=== PATIENT | male | born 1960 | race Caucasian/White ===

== ENCOUNTER 2019-08-24 08:35 | Day surgery (SDC) | payer BC ==
[~2019-08-24] VITALS: Ht 182.9 cm; Wt 98.4 kg
[~2019-08-24 08:35] MED LIST: AMITRIPTYLINE H25 MG PO; ASPIRIN EC325 MG PO; IBUPROFEN600 MG PO; LISINOPRIL20 MG PO; METFORMIN HCL1000 MG PO; METOPROLOL SUCC50 MG PO; METOPROLOL TART50 MG PO; NEXIUM20 MG PO; OMEPRAZOLE20 MG PO; VALIUM5 MG PO; ZOFRAN4 MG PO
--- NOTE | 2019-08-24 11:20 | NUR ---
08/24/19 1120 Yola Dempsey 1112-PT ARRIVES TO PACU ON 5 L O2 WHICH IS DECREASED TO 2 L VIA NC PATIENT IS AWAKE AND TALKING. PT DENIES PAIN/NAUSEA. VSS. SATS >90%. 1119-PT ASKS QUESTIONS ABOUT PROCEDURE AND LIES IN BED WITH EYES OPEN. PT REPOSITIONED SELF ONTO BACK. VSS. SATS >90%.
--- NOTE | 2019-08-25 10:23 | OR ---
[facility] [address] [place], [place] [address] Signed DATE OF OPERATION: 08/24/2019 SURGEON: Marianela Hagan MD PREOPERATIVE DIAGNOSES: 1. Persistent right lower and right mid abdominal pain. 2. Bentonite use, self administered. POSTOPERATIVE DIAGNOSIS: Normal-appearing colon. PROCEDURE: Total colonoscopy to cecum with biopsy of rectum. ANESTHESIA: Intravenous sedation, fentanyl 100 mcg, Versed 6 mg. INDICATIONS: This 59-year-old white man is a patient Dr. Pascual Brewster and known to me from the distant past. He has had persistent right lower abdominal pain and right mid abdominal pain. The patient self treats with Bentonite in small amounts to "detoxify" his system. He has had no blood per rectum. Palpation reveals fullness in the right lower abdomen suggestive though not diagnostic of a colon mass, though this may represent stool. He is admitted at this time to undergo colonoscopy to rule out neoplasm. He understands the risks of bleeding, infection, and perforation, and wished to proceed. FINDINGS: The prep was excellent. Complete colonoscopy was undertaken to the cecum. There was no sign of abnormality, specifically certainly no mass. Biopsies of the rectum were undertaken as well. Notably, cessation of the bentonite been tonight during the course of his bowel prep, which included a low-fiber diet, did coincide with resolution of his right-sided abdominal pain. PROCEDURE NOTE: The patient was brought to the endoscopy suite and placed in lateral decubitus position, given intravenous sedation to the point of slurred speech and nystagmus with full cardiopulmonary monitoring. A full protective gear for the staff was used as we are in the midst of a COVID epidemic. Digital rectal examination was found to be normal. An Olympus video colonoscope was passed into the rectum and manipulated throughout the Electronically Signed By: MARIANELA HAGAN MD 08/25/19 1023 PATIENT NAME: ADALBERTO QUINONES OPERATIVE REPORT DATE OF : 62 REPORT #: [id number] PHYSICIAN: MARIANELA HAGAN MD PCP: BOBBI VEGA REPORT IS CONFIDENTIAL AND NOT TO BE RELEASED WITHOUT AUTHORIZATION [facility] [address], [place] [address] Signed colon, ultimately intubating the cecum itself. The ileocecal valve and appendiceal orifice were normal. The scope was withdrawn from that point and examination throughout showed no sign of polyps, diverticular formation, colitis, or cancer. Retroflex view was normal as well. Biopsies obtained of the rectum to assess for colitis. Scope was removed. The patient was taken to the recovery room in good condition. CONCLUDING DIAGNOSIS: No sign of colonic neoplasm or other abnormality to account for his current symptoms. The resolution of his symptoms with avoidance of Bentonite may be significant. We will ask him to avoid Bentonite going forward. If his symptoms should recur despite that, he will let us know and further evaluation might be considered. MD DEANA Flores/REGINA /[id number] cc: Pascual Brewster MD Copies: PASCUAL BREWSTER DMD ~ Electronically Signed By: MARIANELA HAGAN MD 08/25/19 1023 PATIENT NAME: STACIEADALBERTO DENISEDG OPERATIVE REPORT DATE OF : 62 REPORT #: [id number] PHYSICIAN: MARIANELA HAGAN MD PCP: BOBBI VEGA REPORT IS CONFIDENTIAL AND NOT TO BE RELEASED WITHOUT AUTHORIZATION
--- NOTE | 2019-08-25 11:05 | PATH ---
[facility] [address] [place], [place] [address] Signed SPECIMEN(S): A RECTUM SPECIMEN SOURCE: A. RECTUM CLINICAL HISTORY: Pre: Abdominal pain (RLQ). Post: Normal-appearing colon. MICROSCOPIC DESCRIPTION: Histologic sections of all submitted blocks are examined by light microscopy. These findings, together with the gross examination, support the pathologic diagnosis. FINAL PATHOLOGIC DIAGNOSIS: Rectum, biopsy: - Rectal mucosa with no histopathologic abnormality. - Negative for dysplasia or malignancy. NAL:cml:C2NR GROSS DESCRIPTION: The specimen, labeled "PS, 1," and designated on the requisition "rectum," is received in formalin and consists of two simons soft tissue fragments that measure 0.3 cm in greatest dimension. The specimen is entirely submitted in cassette (A1). AT (under the direct supervision of a pathologist) The Gross Description was prepared using a voice recognition system. The report was reviewed for accuracy; however, sound-alike word errors, addition and/or deletions may occur. If there is any question about this report, please contact Client Services. PERFORMING LABORATORY: The technical component was performed by [employer], [address] [place] [address] (Fundraising Director: Stefania Blanco MD; CLIA# [id number]). [facility], [address] [place] [id number] (CLIA# [id number]). Diagnostician: Mary Grace Escobedo MD Pathologist Electronically Signed 08/25/2019 PATIENT NAME: ADALBERTO QUINONES PATHOLOGY DATE OF : 62 REPORT #: [id number] PHYSICIAN: CLAUDIA PATHOLOGY PCP: BOBBI VEGA REPORT IS CONFIDENTIAL AND NOT TO BE RELEASED WITHOUT AUTHORIZATION [address] [address] Signed Copies: ~ PATIENT NAME: ADALBERTO QUINONES PATHOLOGY DATE OF : 62 REPORT #: [id number] PHYSICIAN: CLAUDIA PATHOLOGY PCP: BOBBI VEGA REPORT IS CONFIDENTIAL AND NOT TO BE RELEASED WITHOUT AUTHORIZATION
== END 2019-08-24 11:50 | disposition home or self-care (01) ==
LOC: DS 08:35 → OPS 08:35 → DS 09:30 → OPS 09:30
PROVIDERS: Surgery
PROC: 0DBP8ZZ Excision of Rectum, Via Natural or Artificial Opening Endoscopic (ICD-10-PCS; principal; 2019-08-24 09:30)
DX: R10.31 Right lower quadrant pain (principal); R19.7 Diarrhea, unspecified; K21.0 Gastro-esophageal reflux disease with esophagitis; E78.00 Pure hypercholesterolemia, unspecified; I10 Essential (primary) hypertension; K21.9 Gastro-esophageal reflux disease without esophagitis; Z79.899 Other long term (current) drug therapy
CPT/HCPCS: 99153; G0500; J2250; J3010; J7121

== ENCOUNTER 2020-06-27 10:57 | Day surgery (SDC) | payer BC ==
[~2020-06-27] VITALS: Ht 182.9 cm; Wt 96.0 kg
--- NOTE | 2020-06-27 13:12 | NUR ---
06/27/20 1312 Yordy Loera RESPONDS TO VOICE. DENIES NAUSEA OR PAIN. REORIENTED TO TIME AND SITUATION. CBG 198 PER FINGER STICK.
--- NOTE | 2020-06-28 11:43 | OR ---
[facility] [address] [place], [place] [address] Signed DATE OF OPERATION: 06/27/2020 SURGEON: Marianela Hagan MD PREOPERATIVE DIAGNOSES: 1. Gastroesophageal reflux, on PPI medication. 2. Chronic left lower abdominal pain, colonoscopy without sign of neoplasm. POSTOPERATIVE DIAGNOSIS: Hiatal hernia with mild distal esophagitis. PROCEDURE: Esophagogastroduodenoscopy with biopsy. ANESTHESIA: Intravenous sedation, fentanyl 100 mcg and Versed 4 mg. INDICATION: A 59-year-old white man, a patient of Dr. Cross, is referred for upper endoscopy on the basis of his reflux problems. He has no hematemesis or severe dysphagia, but does require PPI medication for control of epigastric pain. Notably, the patient has chronic left lower abdominal pain. He has undergone colonoscopy in the past several months, which showed no sign of neoplasm, colitis, or stricture. He is admitted at this time to undergo upper endoscopy upon recommendation of his primary provider, Dr. Cross. He understands the risks of bleeding, infection and perforation, and wished to proceed. FINDINGS: There is mild distal esophagitis and hiatal hernia noted. The stomach itself was normal as was the pylorus. The duodenum had mild inflammation, but not too much. CLOtest was negative 20 minutes post procedure. DESCRIPTION OF PROCEDURE: The patient was brought to the endoscopy suite and given topical lidocaine anesthesia and placed in lateral decubitus position, given intravenous sedation to the point of slurred speech and nystagmus. A bite block was placed. An Olympus video upper endoscope was passed in the hypopharynx. The vocal cords were normal. The scope was advanced to the esophagus throughout its length, it was normal except in the distal portion where there was mild chronic inflammation. Scope was passed into the stomach, which was insufflated with air. Rugal folds appeared normal as did the antral mucosa. The pylorus was normal. Scope was passed through into the duodenum. Duodenum was Electronically Signed By: MARIANELA HAGAN MD 06/28/20 1143 PATIENT NAME: ADALBERTO QUINONES OPERATIVE REPORT DATE OF : 62 REPORT #: [id number] PHYSICIAN: MARIANELA HAGAN MD PCP: CARMELO CROSS MD REPORT IS CONFIDENTIAL AND NOT TO BE RELEASED WITHOUT AUTHORIZATION [facility] [address] [place], [place] [address] Signed reasonably normal. There was some mild inflammatory change of the bulbar portion. Biopsies were obtained. The scope was withdrawn and biopsies then taken of the antrum for both KAREN and pathologic testing. Retroflexed view was undertaken showing somewhat laxed flap valve with further withdrawal in the J-position, complete effacement of the GE junction consistent with hiatal hernia. Scope was straightened, withdrawn and biopsies then taken of the distal esophageal mucosa. Withdrawal of scope showed no sign of Calloway's epithelium or other abnormality. The patient was taken to the recovery room in good condition at the conclusion of the procedure having suffered no complication. CONCLUDING DIAGNOSES: Hiatal hernia and chronic distal esophagitis without Calloway's epithelium or stricture. PLAN: 1. Recommend continued use of PPI medication. 2. He will return to the ongoing care of Dr. Cross. Marianela Hagan MD JM/MODL /[id number] cc: Camrelo Cross MD Copies: ~ Electronically Signed By: MARIANELA HAGAN MD 06/28/20 1143 PATIENT NAME: STACIEADALBERTO DENISEDG OPERATIVE REPORT DATE OF : 62 REPORT #: [id number] PHYSICIAN: MARIANELA HAGAN MD PCP: CARMELO CROSS MD REPORT IS CONFIDENTIAL AND NOT TO BE RELEASED WITHOUT AUTHORIZATION
--- NOTE | 2020-06-28 15:55 | PATH ---
[facility] [address] [place], [place] [address] Signed SPECIMEN(S): A DUODENUM SPECIMEN(S): B ANTRUM/PYLORUS SPECIMEN(S): C LOWER ESOPHAGUS SPECIMEN SOURCE: A. DUODENUM B. ANTRUM/PYLORUS C. LOWER ESOPHAGUS CLINICAL HISTORY: GERD. MICROSCOPIC DESCRIPTION: Histologic sections of all submitted blocks are examined by light microscopy. These findings, together with the gross examination, support the pathologic diagnosis. FINAL PATHOLOGIC DIAGNOSIS: A. Duodenum, biopsy: - Duodenal mucosa with no histopathologic abnormality. - Negative for increased intraepithelial lymphocytes. - Negative for dysplasia or malignancy. B. Stomach, antrum/pylorus, biopsy: - Antral/oxyntic mucosa with no histopathologic abnormality. - Negative for Helicobacter organisms on HE stain. - Negative for dysplasia or malignancy. C. Esophagus, lower, biopsy: - Squamous mucosa with minimal chronic inflammation and reactive epithelial changes, suggestive of reflux esophagitis. - Negative for intestinal metaplasia, dysplasia, or malignancy. NAL:cml:C2NR GROSS DESCRIPTION: Three specimens are received in three containers labeled with "PS". A. The specimen, labeled "PS," and designated on the requisition "duodenum biopsy," is received in formalin and consists of one fragment of pink-simons tissue (0.3 x 0.2 x 0.2 cm). The specimen is submitted entirely in cassette (A1). B. The specimen, labeled "PS," and designated on the requisition "antrum/pylorus biopsy," is received in formalin and consists of two fragments of pink-simons tissue (0.4 x 0.2 x 0.2 cm in aggregate). The specimen is submitted entirely in cassette (B1). PATIENT NAME: ADALBERTO QUINONES PATHOLOGY DATE OF : 62 REPORT #: [id number] PHYSICIAN: CLAUDIA PATHOLOGY PCP: DANYELLE CROSS MD REPORT IS CONFIDENTIAL AND NOT TO BE RELEASED WITHOUT AUTHORIZATION [facility] [address] [place] [address] Signed C. The specimen, labeled "PS," and designated on the requisition "lower esophagus," is received in formalin and consists of one fragment of white-simons tissue (0.5 x 0.1 x 0.1 cm). The specimen is submitted entirely in cassette (C1). AC (under the direct supervision of a pathologist) The Gross Description was prepared using a voice recognition system. The report was reviewed for accuracy; however, sound-alike word errors, addition and/or deletions may occur. If there is any question about this report, please contact Client Services. PERFORMING LABORATORY: The technical component was performed by [employer], [address] [place] [address] (Computer Game Programmer: Stefania Blanco MD; CLIA# [id number]). [facility], [address] [address] (CLIA# [id number]). Diagnostician: Mary Grace Escobedo MD Pathologist Electronically Signed 06/28/2020 Copies: ~ PATIENT NAME: ADALBERTO QUINONES PATHOLOGY DATE OF : 62 REPORT #: [id number] PHYSICIAN: CLAUDIA PATHOLOGY PCP: DANYELLE CROSS MD REPORT IS CONFIDENTIAL AND NOT TO BE RELEASED WITHOUT AUTHORIZATION
== END 2020-06-27 13:45 | disposition home or self-care (01) ==
LOC: OPS 10:57 → DS 11:08 → OPS 12:00 → DS 14:00 → OPS 14:00
PROVIDERS: ATTEND Surgery
PROC: 0DB58ZZ Excision of Esophagus, Via Natural or Artificial Opening Endoscopic (ICD-10-PCS; principal; 2020-06-27 12:00)
DX: K21.00 Gastro-esophageal reflux disease with esophagitis, without bleeding (principal); K44.9 Diaphragmatic hernia without obstruction or gangrene; K29.80 Duodenitis without bleeding; G89.29 Other chronic pain; R10.32 Left lower quadrant pain; E78.00 Pure hypercholesterolemia, unspecified; I10 Essential (primary) hypertension
CPT/HCPCS: J2250; J3010; J7121